=== PATIENT | female | born 1955 | race Caucasian/White ===

== ENCOUNTER → 2021-07-21 11:51 | Outpatient (CLI) | payer MEDICARE, OTHER, SELFPAY ==
--- NOTE | 2021-07-21 11:55 | DI.RAD.S_ITS ---
PROCEDURE: XR LUMBAR SPINE MIN 4V INDICATIONS: BACK PAIN TECHNIQUE: 5 views of the lumbar spine were acquired, including bilateral oblique views. COMPARISON: None. FINDINGS: Bones: 5 nonrib-bearing vertebrae are present. S shaped scoliosis of the thoracolumbar spine. There is approximately 6 millimeters of L4-L5 anterolisthesis secondary to facet hypertrophy. No vertebral body compression fractures. No suspicious bony lesions. Mild degenerative disc changes noted throughout the lumbar spine. Moderate L4-L5 and L5-S1 facet arthropathy. Mild L3-L4 facet arthropathy. Soft tissues: Overlying bowel gas pattern is normal. No suspicious soft tissue calcifications. Oblique images: No pars defects. IMPRESSION: 1. Multilevel degenerative disc disease. 2. Multilevel facet arthropathy. 3. No fracture. No acute osseous lesion. If symptoms and/or clinical suspicion for pathology persists, evaluation with MRI should be considered for further assessment. 4. Grade 1 L4-L5 degenerative spondylolisthesis. 5. S-shaped thoracolumbar spine scoliosis. Dictated by: Meeta Gaxiola MD, PhD on 07/21/2021 at 15:51 Approved by: Meeta Gaxiola MD, PhD on 07/21/2021 at 15:52
== END ==
PROVIDERS: Referring Provider Physical Medicine & Rehabilitation; Visit Provider Physical Medicine & Rehabilitation
DX: M51.36 Other intervertebral disc degeneration, lumbar region (principal); M51.37 Other intervertebral disc degeneration, lumbosacral region; M47.816 Spondylosis without myelopathy or radiculopathy, lumbar region; M47.817 Spondylosis without myelopathy or radiculopathy, lumbosacral region; M43.16 Spondylolisthesis, lumbar region; M41.85 Other forms of scoliosis, thoracolumbar region; M54.9 Dorsalgia, unspecified
CPT/HCPCS: 72110

== ENCOUNTER → 2023-12-24 12:16 | Outpatient (CLI) | payer MEDICARE, OTHER, SELFPAY ==
--- NOTE | 2023-12-24 12:20 | DI.RAD.S_ITS ---
PROCEDURE: XR LUMBAR SPINE MIN 4V INDICATIONS: BACK PAIN TECHNIQUE: 5 views of the lumbar spine were acquired, including bilateral oblique views. COMPARISON: [facility], , XR LUMBAR SPINE MIN 4V, 07/21/2021, 12:04. FINDINGS: Bones: 5 nonrib-bearing vertebrae are present. There is marked rightward curvature of thoracic spine incompletely evaluated on this study unchanged from prior study. Mild levoscoliosis of lumbar spine is also seen. 3-4 millimeter anterolisthesis of L3 on L4 is seen. 6 millimeter anterolisthesis of L4 on L5 is also seen. No vertebral body compression fractures. Degenerative endplate changes are noted throughout lumbar spine more notably at L4-5 and L5-S1 levels. No suspicious bony lesions. Soft tissues: Overlying bowel gas pattern is normal. No suspicious soft tissue calcifications. Oblique images: No pars defects. No significant bony foraminal stenosis. IMPRESSION: S shaped scoliosis of thoracic and lumbar spine incompletely evaluated on this study and is grossly unchanged from 2021 study. Grade 1 anterolisthesis of L3 on L4 and L4 on L5. No acute vertebral body compression fractures. Degenerative disc disease throughout lumbar spine. No gross pars defect seen on oblique images. Dictated by: Shaheen Graff M.D. on 12/24/2023 at 13:07 Approved by: Shaheen Graff M.D. on 12/24/2023 at 13:11
--- NOTE | 2023-12-24 12:20 | DI.RAD.S_ITS ---
PROCEDURE: XR HAND RT MIN 3V INDICATIONS: RIGHT THUMB PAIN TECHNIQUE: 3 views of the hand(s) acquired. COMPARISON: None. FINDINGS: Bones: No fractures or dislocations. Carpal bones are normally aligned. No suspicious bony lesions. Soft tissues: No suspicious soft tissue calcifications. IMPRESSION: No acute right hand fracture or dislocation. 1st [facility] joint osteoarthritis. Dictated by: Shaheen Graff M.D. on 12/24/2023 at 13:02 Approved by: Shaheen Graff M.D. on 12/24/2023 at 13:03
== END ==
PROVIDERS: PCP Nurse Practitioner; Referring Provider Physical Medicine & Rehabilitation; Visit Provider Physical Medicine & Rehabilitation
DX: M72.0 Palmar fascial fibromatosis [Dupuytren] (principal); M65.311 Trigger thumb, right thumb; M18.11 Unilateral primary osteoarthritis of first carpometacarpal joint, right hand; M47.816 Spondylosis without myelopathy or radiculopathy, lumbar region; M41.9 Scoliosis, unspecified; M43.16 Spondylolisthesis, lumbar region; M51.369 Other intervertebral disc degeneration, lumbar region without mention of lumbar back pain or lower extremity pain; M51.379 Other intervertebral disc degeneration, lumbosacral region without mention of lumbar back pain or lower extremity pain
CPT/HCPCS: 72110; 73130; 99213

== ENCOUNTER → 2024-12-22 11:26 | Outpatient (CLI) | payer MEDICARE, OTHER, SELFPAY ==
--- NOTE | 2024-12-22 11:27 | DI.RAD.S_ITS ---
PROCEDURE: XR T AND L SPINE 4 TO 5 VIEWS INDICATIONS: scoliosis TECHNIQUE: Frontal and lateral standing views of the spine acquired. COMPARISON: None. FINDINGS: Levoconvex curvature of the upper thoracic spine with Garcia angle of 25 degrees. Dextroconvex curvature of the mid to lower thoracic spine with Garcia angle of 50 degrees. Levoconvex curvature of the lumbar spine with Garcia angle of 31 degrees. Bone morphology: No developmental anomalies of the ribs or spine. Twelve pairs of ribs are noted. Five nonrib-bearing lumbar vertebrae are present. No suspicious bony lesions. Mild straightening of thet lumbar lordosis and thoracic kyphosis on lateral view. IMPRESSION: Scoliotic curvature of the thoracolumbar spine with measurements provided above. Approved by: Uziel Orta M.D. on 12/22/2024 at 14:07
== END ==
PROVIDERS: PCP Nurse Practitioner; Referring Provider Physical Medicine & Rehabilitation; Visit Provider Physical Medicine & Rehabilitation
DX: M41.9 Scoliosis, unspecified (principal)
CPT/HCPCS: 72083